=== PATIENT | male | born 1985 | race Caucasian/White ===

== ENCOUNTER 2024-06-12 17:04 | Emergency (ER) | payer MEDICAID ==
[~2024-06-12] VITALS: Ht 170.2 cm; Wt 104.3 kg
[2024-06-12 17:29] VITALS: BP 145/91; PULSE 88; RESP 18; TEMP 98.3; O2SAT 97
[2024-06-12 18:34] LABS: BASOPHILS # (AUTO) 0.1 K/uL (0.00-0.22); BASOPHILS % (AUTO) 0.6 % (0.0-2.0); EOSINOPHILS # (AUTO) 0.1 K/uL (0-0.4); EOSINOPHILS % (AUTO) 1.2 % (0.0-4.0); HEMATOCRIT 42.9 % (36-52); HEMOGLOBIN 14.6 g/dL (12.0-18.0); LYMPHOCYTES # (AUTO) 3.2 K/uL (2.0-11.5); LYMPHOCYTES % (AUTO) 28.9 % (20.5-51.1); MEAN CORPUSCULAR HEMOGLOBIN 30 pg (27-31); MEAN CORPUSCULAR HGB CONC 34 g/dL (33-37); MEAN CORPUSCULAR VOLUME 87.8 fL (80-94); MONOCYTES # (AUTO) 0.7 K/uL (0.8-1.0); NEUTROPHILS # (AUTO) 6.9 K/uL (1.8-7.7); NEUTROPHILS % (AUTO) 63.3 % (42.2-75.2); PLATELET COUNT (AUTO) 224 K/uL (140-450); RED BLOOD CELL COUNT(AUTO) 4.89 MIL/uL (4.20-6.10); RED CELL DISTRIBUTION WIDTH 13.4 % (11.6-13.7)
[2024-06-12 18:41] LABS: APPEARANCE,URINE CLEAR (CLEAR); BILIRUBIN,URINE NEGATIVE (NEGATIVE); BLOOD, URINE NEGATIVE (NEGATIVE); COLOR,URINE YELLOW (YELLOW); LEUKOCYTE ESTERASE ,URINE NEGATIVE (NEGATIVE); NITRITE, URINE NEGATIVE (NEGATIVE); PH,URINE 5.5 (5.0-9.0); PROTEIN,URINE NEGATIVE (NEGATIVE); UGLUCOSE 3+ (NEGATIVE); UROBILINOGEN,URINE 0.2 EU/dL (0.2 - 1)
[2024-06-12 18:54] LABS: ANION GAP 13.3 (8-16); CARBON DIOXIDE 28.7 mmol/L (21-32); CREATININE 0.7 mg/dL (0.6-1.3)
[2024-06-12 19:00] LABS: ALBUMIN 3.9 g/dL (3.4-5.0); BILIRUBIN,DIRECT 0.1 mg/dL (0.0-0.3); TOTAL PROTEIN, SERUM 7.4 g/dL (6.4-8.2)
[2024-06-12 19:05] LABS: TOTAL BILIRUBIN 0.5 mg/dL (0.0-1.0)
[2024-06-12] MEDS: NACL 0.9% 1,000 ML IV ONE (19:05)
[2024-06-12] MEDS: KETOROLAC 30 MG/ML VIAL IVP ONE (19:06)
[2024-06-12] MEDS ORDERED: DICL20GE TP (19:26)
[2024-06-12] MEDS ORDERED: CYCL-711 PO (19:26)
[2024-06-12] MEDS ORDERED: IBUP-2218 PO (19:26)
[2024-06-12 19:37] VITALS: BP 117/73; PULSE 88; RESP 15; TEMP 98.3; O2SAT 99
== END 2024-06-12 19:37 | disposition home or self-care (01) ==
LOC: MED 17:04
DX: R10.9 Unspecified abdominal pain (principal); T14.8XXA Other injury of unspecified body region, initial encounter; R11.0 Nausea; R19.7 Diarrhea, unspecified; X58.XXXA Exposure to other specified factors, initial encounter; Y93.89 Activity, other specified; Y92.89 Other specified places as the place of occurrence of the external cause; Y99.8 Other external cause status; Z79.1 Long term (current) use of non-steroidal anti-inflammatories (NSAID); Z79.899 Other long term (current) drug therapy
CPT/HCPCS: 36415; 74176; 80048; 80076; 81003; 83690; 85025; 96361; 96374; 99285; J1885; J7030

== ENCOUNTER 2024-07-06 09:28 | Emergency (ER) | payer MEDICAID ==
[~2024-07-06] VITALS: Ht 170.2 cm; Wt 105.2 kg
[~2024-07-06 09:28] MED LIST: CYCL-711 PO; DICL20GE TP; IBUP-2218 PO
[2024-07-06 09:57] VITALS: BP 109/74; PULSE 107; RESP 15; TEMP 98.6; O2SAT 98
[2024-07-06 10:23] VITALS: O2SAT 98
[2024-07-06] MEDS: LIDOCAINE 5% 1 EA PATCH TP ONE (11:06)
[2024-07-06] MEDS: KETOROLAC 30 MG/ML VIAL IM ONE (11:14)
[2024-07-06] MEDS ORDERED: ACET-10509 PO (11:26)
[2024-07-06] MEDS ORDERED: ONDA-188 SL (11:26)
== END 2024-07-06 12:00 | disposition home or self-care (01) ==
LOC: MED 09:28
DX: M54.41 Lumbago with sciatica, right side (principal); A08.4 Viral intestinal infection, unspecified; L60.0 Ingrowing nail; E11.9 Type 2 diabetes mellitus without complications; Z79.1 Long term (current) use of non-steroidal anti-inflammatories (NSAID); Z79.899 Other long term (current) drug therapy
CPT/HCPCS: 82948; 96372; 99283; J1885